=== PATIENT | male | born 1985 | race Caucasian/White ===

== ENCOUNTER 2017-12-12 17:07 | Emergency (ER) | payer SELFPAY ==
[2017-12-12 17:12] VITALS: BP 129/87; PULSE 129; RESP 18; TEMP 36.9; O2SAT 95
--- NOTE | 2017-12-12 17:36 | DI.RPTCT_ITS ---
SYMPTOM/DIAGNOSIS: ABSCESS RIGHT ROOF OF MOUOTH, VISUAL CHANGE RT EYE PAIN, DU FACIAL CT: 12/12 No cervical mass or adenopathy. Laryngeal structures appear intact. No bony erosion or destruction seen involving the face or mandible. There is moderate mucoperiosteal thickening of right maxillary and right ethmoid sinuses with probable frontal retention cyst. Sphenoid sinuses are clear. The findings are consistent with chronic sinus disease. Visualized mastoid air cells are clear. There is probable abscess of the soft tissues inferior to the hard palate on the right as suspected clinically, with low attenuation soft tissue noted measuring about 16 x 9 x 9 mm. No additional facial abscess identified. CONCLUSION: Findings consistent with soft tissue abscess adjacent to hard palate as described above and as clinically suspected. No additional findings.
--- NOTE | 2017-12-12 17:37 | ED.GENADUL ---
Disposition Clinical Impression: Dental abscess Disposition: HOME Condition: Fair Instructions: Dental Abscess (ED) Additional Instructions: Encourage hydration. Continue with Tylenol and/or ibuprofen as needed for discomfort. Please take Augmentin as prescribed. Even if symptoms improve, take the entire course. Our acute care registered nurse will contact you to schedule follow-up with ENT tomorrow. If you do not hear on appointment, please call number listed below. If you develop fever/chills, increased pain, increased swelling or other new/worsening symptoms please seek care urgently once again. Prescriptions: Amoxicillin 875/Clav. 125 [Augmentin 875-125 Tablet] 1 each PO BID #14 tab Referrals: Gordon Bravo DO [OSTEOPATHIC DOCTOR] - Medical Decision Making - Lab Data Laboratory Tests 12/12/17 12/12/17 17:40 17:40 WBC 9.69 RBC 5.20 Hgb 17.5 Hct 48.4 MCV 93.1 MCH 33.7 H MCHC 36.2 H RDW 11.8 Plt Count 208 MPV 9.0 Immature Gran % 0.3 Neutrophils % 61.3 Lymphocytes % 22.6 Monocytes % 14.6 Eosinophils % 1.0 Basophils % 0.2 Absolute Neutrophils 5.94 Absolute Lymphocytes 2.19 Absolute Monocytes 1.41 H Absolute Eosinophils 0.10 Absolute Basophils 0.02 Sodium 132 L Potassium 3.9 Chloride 98 Carbon Dioxide 19.7 L Anion Gap 14.3 H BUN 7 Creatinine 0.92 Estimated GFR/1.73 m2 >= 60.00 Glucose 59 L Calcium 8.5 Total Bilirubin 0.4 AST 22 ALT 44 Alkaline Phosphatase 95 Total Protein 7.9 Albumin 3.8 Results reviewed for labs ordered during visit: Yes - Radiology Data Radiology results: report reviewed Antibiotics there is a 0.9 x 1.6 x 0.9 cm hypodense collection along the right anterolateral upper hard palate. Advised that this corresponds with a given history of known abscess formation in this region. No associated gas bubbles are detected. No associated periosteal elevation is seen. Dental consultation is recommended. Orbits appear intact. Both globes appear normal. The retro-orbital soft tissue appears normal. There is a suspected 1.7 x 2.3 cm mucous retention cyst or polyp in the medial right frontal sinus extending into the frontal ethmoid recess. There is mucoperiosteal thickening scattered throughout the multiple right ethmoid sinuses and within the right maxillary sinus thought consistent with sinusitis. The remaining paranasal sinuses appear satisfactorily developed and aerated. Some dense streak artifact arising from dental work creates some image degradation, predominantly on the right oral cavity. There is noted to be an approximately 6.0 mm round shaped zones of decreased attenuation within several of the bilateral mandibular teeth. These are suspected to represent dental caries. Dental evaluation is therefore recommended. There is some nasal septal deviation noted, convex to the left. The nasal septum appears intact. The turbinates appear normal and symmetrical in size. - Medical Decision Making Patient is a 32-year-old male presenting today with chief complaint of right upper mouth pain. There is a notable area of swelling and fluctuance. Patient has generally poor dentition. This is most consistent with a dental abscess. No erythema or warmth. Patient does have soft tissue swelling on the right cheek. He is having exquisite tenderness over the right cheek and into the right orbit. No discomfort with extraocular movement. However, the patient is endorsing blurred vision. Nursing staff performed visual acuity and found the right eye to be 20/30 and left to be 20/20 with bilateral vision of 20/15. However, given the patient's level of discomfort, headache and visual symptoms, I feel that imaging is appropriate to ensure that the dental abscess has not spread. Laboratory evaluation without significant abnormality. Glucose is noted to slightly note 59. Patient is given a glass of orange juice. No leukocytosis. CT reviewed by radiologist were able to appreciate the fluid collection in the palate. He also noted sinusitis on the right side. Patient has not been having sinus discomfort prior to the last 2 days during which time he has noted this intraoral swelling. I am concerned that there may be a communication between the sinus in the mouth. Radiologist did not note this. Imaging was reviewed by myself as well as Dr. No to attempt to visualize any communication. We are unable to see communication. However, history and exam is concerning for this. We will drain an abscess as previously discussed with patient and place him on antibiotics. I discussed the risk/benefits of incision and drainage with the patient. He voiced understanding and wished to proceed. Hurricaine gel was used to anesthetize the area. Using standard sterile technique, an 11 blade was then used to open area over maximal fluctuance. I was able to express fluid and blood in the lateral aspect of the area did decompress some. However, medially the fluctuance persists. I then attempted this again with similar results. I also attempted to aspirate the area with an 18-gauge and no pus is able to be expressed. Only blood was able to be expressed and fluctuance has persisted. As multiple attempts were made at drainage, I do not feel comfortable continuing with this. Rather, I have placed the patient on antibiotics. Will be given Augmentin which should cover both sinus and dental origin. I have asked her acute care registered nurse to help establish care with ENT and follow-up within the next 48 hours for reevaluation. Patient is given strict return precautions. He was given Tylenol and ibuprofen here for his headache. All his questions and concerns were addressed and he is in agreement this plan. Patient was given Augmentin dosing for tonight and tomorrow morning as pharmacies are currently closed. History of Present Illness - General Chief complaint: DentalOral Stated complaint: DENTAL Time Seen by Provider: 12/12/17 17:14 Source: patient, family, RN notes reviewed Mode of arrival: ambulatory Limitations: no limitations - History of Present Illness Initial comments: Is a 32-year-old male, covered by his girlfriend, with chief complaint of dental pain. Patient reports that discomfort began approximately 2 days ago. Has globally poor dentition. Does not routinely see a dentist. Reports of the density had been seeing recently retired. He reports that he has not noted swelling and discomfort to the right side of the work of his mouth. Has not been able to eat or drink secondary to pain. Took ibuprofen yesterday for discomfort. Denies any fevers or chills. He is also endorsing visual change on the right side, feels that his distance vision has become blurred. No pain with movement of the eye. Is endorsing orbital pain and pain into the right side of the mosque. States that he is a throbbing headache which is primarily on the right side. No pain along the buccal side. No sore throat. Denies any chest pain or difficulty breathing. Patient smokes 3 packs per day. - Related Data Amoxicillin 875/Clav. 125 [Augmentin 875-125 Tablet] 1 each PO BID #14 tab 12/12/17 Allergies Allergy/AdvReac Type Severity Reaction Status Date / Time ketorolac AdvReac vomiting Unverified 12/12/17 17:15 Review of Systems Constitutional: no symptoms reported. denies: chills, fever, malaise Eyes: as per HPI ENT: as per HPI Respiratory: no symptoms reported. denies: cough, shortness of breath Cardiovascular: denies: chest pain, palpitations Gastrointestinal: denies: abdominal pain, nausea, vomiting Skin: denies: rash, lesions Neurological: as per HPI, headache. denies: weakness Past Medical History - Past Medical History Medical history: no medical history Surgical history: no surgical history - Social History Smoking status: current everyday smoker Alcohol use: heavy (dialy) General Exam - General Limitations: no limitations General appearance: alert, in no apparent distress - Head Head exam: Present: atraumatic - Eye Eye exam: Present: normal apperance, PERRL, EOMI, periorbital tenderness. Absent: scleral icterus, conjunctival injection, nystagmus, periorbital swelling Pupils: Present: normal accommodation - ENT ENT exam: Absent: normal exam (Exam of the internal oropharynx significant for a 1.5 cm area of swelling along the right side of the palate. This area is fluctuant and painful with palpation. Patient has a globally poor dentition with multiple fractured teeth. No swelling along the buccal side. No area of fluctuance or pain with palpation. Oropharynx otherwise normal. No tonsillar swelling. Uvula is midline. Small amount of soft tissue swelling is noted over the right cheek. No discoloration. No palpable deformity with palpation. This area is quite tender. Tenderness extends to the) - Neck Neck exam: Present: normal inspection. Absent: tenderness, lymphadenopathy - Respiratory Respiratory exam: Present: normal lung sounds bilaterally. Absent: respiratory distress - Cardiovascular Cardiovascular Exam: Present: regular rate, normal rhythm, normal heart sounds - Neurological Exam Neurological exam: Present: alert, normal gait - Psychiatric Psychiatric exam: Present: normal affect, normal mood - Skin Skin exam: Present: warm, dry, normal color Course Vital Signs - 24 hr 12/12/ 17:12 Temperature 36.9 C Pulse 129 H Respiratory 18 Rate Blood Pressure 129/87 Pulse Oximetry 95
[2017-12-12 17:48] LABS: Abs Immature Grans 0.03 k/cumm (0.0-0.09); Absolute Basophil Count 0.02 k/cumm (0.0-0.2); Absolute Lymphocyte Count 2.19 k/cumm (1.2-3.4); Absolute Monocyte Count 1.41 k/cumm (0.11-0.7); Absolute Neutrophil Count 5.94 k/cumm (1.2-6.7); Basophils % 0.2; HCT 48.4 % (40.0-50.0); HGB 17.5 g/dL (13.5-17.5); Immature Grans % 0.3; Lymphocytes % 22.6; Mean Corp. HGB Concentration 36.2 g/dL (32.0-36.0); Mean Corpuscular Hemoglobin 33.7 pg (27.0-33.0); Mean Corpuscular Volume 93.1 fL (80-95); Monocytes % 14.6; Neutrophils % 61.3; Platelet Count 208 x1000/uL (130-400); RBC Distribution Width 11.8 % (11.8-14.1); White Blood Cell Count 9.69 k/cumm (4.4-10.8)
[2017-12-12] MEDS: Normal Saline 1,000 ML 1000 ML IV (18:03)
[2017-12-12 18:10] LABS: ALT 44 U/L (12-78); AST 22 U/L (15-37); Albumin 3.8 g/dL (3.4-5.0); Alkaline Phosphatase 95 U/L (46-116); Anion Gap 14.3 mmol/L (3-11); BUN 7 mg/dL (7-18); Bilirubin, Total 0.4 mg/dL (0.2-1.0); CO2 19.7 mmol/L (21.0-32.0); CREATININE 0.92 mg/dL (0.70-1.30); Calcium 8.5 mg/dL (8.5-10.1); Chloride 98 mmol/L (98-107); Glucose 59 mg/dL (70-100); Potassium 3.9 mmol/L (3.5-5.1); Sodium 132 mmol/L (136-145); Total Protein 7.9 g/dL (6.4-8.2)
[2017-12-12] MEDS: Omnipaque 350 MG/ML 100 ML BTL IJ (18:36)
--- NOTE | 2017-12-12 19:19 | DI.VRAD_ITS ---
EXAM: CT Maxillofacial With Intravenous Contrast EXAM DATE/TIME: 12/12/2017 5:38 PM CLINICAL HISTORY: 32 years old, male; Pain; Jaw pain; Patient HX: Abscess right roof of mouth, visual change, swelling on RT. Cheek, right eye pain, headache. TECHNIQUE: Axial computed tomography images of the face with intravenous contrast. All CT scans at this facility use at least one of these dose optimization techniques: automated exposure control; mA and/or kV adjustment per patient size (includes targeted exams where dose is matched to clinical indication); or iterative reconstruction. Coronal and sagittal reformatted images were created and reviewed. CONTRAST: 100 ml of Omnipaque 350 administered intravenously. COMPARISON: No relevant prior studies available. 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 Soft tissues: An approximately 0.9 x 1.6 by 0.9 cm hypodense collection is seen along the right anterolateral upper hard palate. This ranges in density measurement between 51.2-61.9 HU. This corresponds with the given history of known abscess formation in this region. No associated gas bubbles are detected. No associated periosteal elevation is seen. Dental consultation is recommended. Orbits: Appear intact. Both globes appear normal. The retro-orbital soft tissues appeared normal. Sinuses: There is identified a suspected 1.7 x 2.3 cm mucous retention cyst or polyp in the medial right frontal sinus extending into the frontal ethmoid recess. There is mucoperiosteal thickening scattered throughout multiple right ethmoid sinuses and within the right maxillary sinus thought consistent with sinusitis. The remaining paranasal sinuses appeared satisfactorily developed and aerated. Dental: Some dense streak artifact arising from dental work creates some image degradation, predominantly in the right oral cavity. There are noted to be approximately 6.0 mm round shaped zones of decreased attenuation within several of the bilateral mandibular teeth. These are suspected to represent dental caries. Dental evaluation is therefore recommended. Other findings: There is some nasal septal deviation noted, convex to the left. The nasal septum appears intact. The nasal turbinates appeared normal and symmetrical in size. IMPRESSION: 1. There is identification of a suspected stroke 0.9 x 1.6 x 0.9 cm abscess along the anterolateral upper right hard palate. 2. Suspected multiple dental caries and the mandibular teeth. Dental evaluation is recommended. Dictated and Authenticated by: Manish Summers MD. Ordering:CODY SPARKS MD
[2017-12-12] MEDS: Benzocaine 20% Gel 30 GM JAR MM (19:44)
[2017-12-12] MEDS: Acetaminophen 500 MG TAB 1000 MG PO (20:23)
[2017-12-12] MEDS: Ibuprofen 600 MG TAB PO (20:24)
[2017-12-12 20:38] VITALS: PULSE 96
[2017-12-12] MEDS: Amoxicillin 875/Clav. 125 TAB PO (20:38)
[2017-12-12 20:40] VITALS: BP 129/87; PULSE 96; RESP 18; TEMP 36.9; O2SAT 95
--- NOTE | 2017-12-13 13:29 | PDOC.ERCMPRO ---
Care Management Progress Note -Chelo MENDOZA requested assistance with an ENT f/u for abscess as soon as possible. Referral faxed to ENT today.
== END 2017-12-12 20:50 | disposition home or self-care (01) ==
PROVIDERS: Physician Assistant; Emergency Provider Physician Assistant; PCP Neuromusculoskeletal Medicine & OMM
DX: K04.7 Periapical abscess without sinus (principal); F17.210 Nicotine dependence, cigarettes, uncomplicated
CPT/HCPCS: 36415; 80053; 96360; 96361; 99284; 70487; 85025; J3490